=== PATIENT | male | born 1990 | race African-American/Black ===

== ENCOUNTER 2025-01-30 11:47 | Emergency (ER) | payer SELFPAY | END 2025-01-30 12:20 | disposition home or self-care (01) | LOC: NAV ERS 11:47 | DX: T44.7X6A Underdosing of beta-adrenoreceptor antagonists, initial encounter (principal); I10 Essential (primary) hypertension; F41.9 Anxiety disorder, unspecified; Z91.148 Patient's other noncompliance with medication regimen for other reason; Z79.899 Other long term (current) drug therapy | CPT/HCPCS: 99281 ==

== ENCOUNTER 2025-02-23 14:50 | Emergency (ER) | payer SELFPAY | END 2025-02-23 16:45 | disposition home or self-care (01) | LOC: NAV ERS 14:50 | DX: F41.9 Anxiety disorder, unspecified (principal); I10 Essential (primary) hypertension; Z79.899 Other long term (current) drug therapy | CPT/HCPCS: 93005; 99283 ==